=== PATIENT | male | born 1990 | race African-American/Black ===

== ENCOUNTER 2016-08-15 11:49 | Emergency (ER) | payer OTHER ==
[~2016-08-15] VITALS: Ht 185.4 cm; Wt 95.3 kg
--- NOTE | 2016-08-15 12:09 | ED ANKLE/FOOT INJURY COMPLAINT ---
History of Present Illness General Chief Complaint: Foot or Ankle Injury Stated Complaint: R FOOT INJURY Source: patient Exam Limitations: no limitations Vital Signs & Intake/Output Vital Signs & Intake/Output Vital Signs Date Time Temp Pulse Resp B/P Pulse O2 O2 Flow FiO2 Ox Delivery Rate 08/15 1201 97.3 67 16 123/82 100 Room Air Allergies Coded Allergies: No Known Allergies (08/15/16) Triage Note: 26 Y/O MALE C/O PAIN TO OUTER ASPECT R FOOT X FEW DAYS; STATES HE HAS HAD PAIN SINCE PLAYING BASKETBALL APPROX 1 WEEK AGO. HAS BEEN TAKING OTC MEDS WITH NO RELIEF OF SWELLING OR PAIN. DECLINES OFFER OF W/C Triage Nurses Notes Reviewed? yes HPI: Patient is a 26-year-old male presented complaining of right foot pain. Patient reports that approximately 2 weeks ago he noticed an area of "athlete's foot" to his right distal lateral foot, has been using a powder to the area with no improvement. One week ago patient was playing basketball and he twisted his right foot. Patient has been having pain and swelling for approximately 4-5 days. Today patient noticed some redness to his right foot. Pain is moderate, worsens with palpation and walking. Patient has been taking [id number] pain medication with no improvement. Patient denies fevers, headache injury, neck pain, numbness, decreased range of motion. (DUSTY DANIEL) Reconcile Medications Amoxicillin/Potassium Clav (Augmentin 875-125 Tablet) 875 MG-125 MG TABLET 1 TAB PO BID cellulitis Clotrimazole 1 % CREAM..G. 1 GLADIS TOP TID PRN rash/"athlete's foot" apply to affected area(s) Diclofenac Sodium 75 MG TABLET.DR 1 TAB PO BID PRN pain/inflammation Tramadol HCl 50 MG TABLET 1-2 TAB PO Q6 PRN pain (THADDEUS NARVAEZ DO) Past History Travel History Traveled to [place] past 21 day No Medical History Any Pertinent Medical History? none Neurological: NONE EENT: NONE Cardiovascular: NONE Respiratory: NONE Gastrointestinal: NONE Hepatic: NONE Renal: NONE Musculoskeletal: NONE Psychiatric: NONE Endocrine: NONE Blood Disorders: NONE Cancer(s): NONE RN BUILDING/Reproductive: NONE Surgical History Surgical History: non-contributory Psychosocial History What is your primary language Pashto Tobacco Use: Current Not Daily Family History Hx Contributory? No (DUSTY DANIEL) Review of Systems Review of Systems Constitutional: Denies: chills, fever. EENTM: Reports: no symptoms. Respiratory: Reports: no symptoms. Cardiovascular: Denies: chest pain. GI: Denies: abdominal pain. Musculoskeletal: Reports: see HPI. Skin: Reports: erythema (right foot). Neurological/Psychological: Reports: no symptoms. Hematologic/Endocrine: Reports: no symptoms. Immunologic/Allergic: Reports: no symptoms. (DUSTY DANIEL) Physical Exam Physical Exam General Appearance: well developed/nourished, alert, awake Head: atraumatic, normal appearance Eyes: Bilateral: normal appearance. Ears, Nose, Throat: hearing grossly normal Neck: normal inspection, full range of motion Cardiovascular/Respiratory: no respiratory distress Back: normal inspection, normal range of motion Leg/Knee/Thigh Left: normal range of motion, normal inspection Leg/Knee/Thigh Right: normal range of motion, normal inspection Ankle Right: normal inspection, normal range of motion, nontender Foot Right: mild erythema, swelling, tenderness dorsolateral mid and distal foot. Neuro/Vascular: normal motor function, normal sensation Tendon: normal tendon function (DUSTY DANIEL) Progress Differential Diagnosis: cellulitis, fracture, sprain, contusion, tinea pedis, osteomyelitis Plan of Care: Orders Procedure Date/time Status Durable Medical Equipment 08/15 1318 Active 08/15/2016 1:26:24 PM: Results of x-ray discussed with patient. Suspect foot sprain and an element of cellulitis, likely stemming from the area of tinea pedis that causes skin breakdown. Patient afebrile, nontoxic-appearing. Will start patient on clotrimazole, antibiotics, medication for pain control. Appears stable for discharge. (DUSTY DANIEL) Diagnostic Imaging: Viewed by Me: Radiology Read. Discussed w/RAD: Radiology Read. Radiology Impression: PATIENT: THADDEUS PALOMARES PRESENT AGE: 26 PATIENT ACCOUNT NO: [id number] : 88 LOCATION: [facility] ORDERING PHYSICIAN: THADDEUS NARVAEZ DO SERVICE DATE: 08/15/16-1202 EXAM TYPE: RAD - XRY-FOOT COMPLETE, R EXAMINATION: XR FOOT, RIGHT CLINICAL INFORMATION: Right foot pain and swelling for one week. Evaluate for fracture. COMPARISON: None TECHNIQUE: Right foot, 3 views FINDINGS: Small enthesophytes of the calcaneus. The Chopart and Lisfranc joints are intact. No acute fracture, subluxation or focal soft tissue swelling within the foot. The joint spaces are maintained. IMPRESSION: No acute fracture or malalignment within the right foot. DICTATED BY: BRODY FORTE MD DATE/TIME DICTATED:08/15/161302 COOKY MACHINE OPERATOR:BRENDA DATE/TIME TRANSCRIBED:08/15/161302 CONFIDENTIAL, DO NOT COPY WITHOUT APPROPRIATE AUTHORIZATION. <Electronically signed in Other Vendor System> SIGNED BY: BRODY FORTE MD 08/15/16 1308 (DUSTY DANIEL) Departure Departure Time of Disposition: 1318 Disposition: HOME OR SELF CARE Condition: Stable Clinical Impression Primary Impression: Foot sprain Qualifiers: Encounter type: initial encounter Laterality: right Qualified Code: S93.601A - Unspecified sprain of right foot, initial encounter Secondary Impressions: Cellulitis of right foot Tinea pedis Qualifiers: Laterality: right Qualified Code: B35.3 - Tinea pedis Referrals: MANSI CAMPOS DO PATIENT HAS NO PRIMARY CARE DR (PCP/Family) NELDA KOHLER,BRYAN Additional Instructions: Elevate your foot as much as possible. Apply heat to the area. Follow up with one of the primary doctors listed in your discharge paperwork to establish a primary doctor. Return to the ER if redness spreading, fevers, pain uncontrollable or worsening of symptoms. Departure Forms: Customer Survey General Discharge Information (DUSTY DANIEL) Departure Prescriptions: Current Visit Scripts Amoxicillin/Potassium Clav (Augmentin 875-125 Tablet) 1 TAB PO BID #14 TAB Clotrimazole 1 GLADIS TOP TID PRN rash/"athlete's foot" #45 GM apply to affected area(s) Diclofenac Sodium 1 TAB PO BID PRN pain/inflammation #15 TAB Tramadol HCl 1-2 TAB PO Q6 PRN pain #15 TAB PA/DISPENSING OPTICIAN APPRENTICE Co-Sign Statement Statement: ED Attending supervision documentation- [] I saw and evaluated the patient. I have also reviewed all the pertinent lab results and diagnostic results. I agree with the findings and the plan of care as documented in the PA's/DISPENSING OPTICIAN APPRENTICE's documentation. [X] I have reviewed the ED Record and agree with the PA's/DISPENSING OPTICIAN APPRENTICE's documentation. [] Additions or exceptions (if any) to the PAs/DISPENSING OPTICIAN APPRENTICE's note and plan are summarized below: [] (THADDEUS NARVAEZ DO)
--- NOTE | 2016-08-15 13:08 | RADIOLOGY REPORT ---
EXAMINATION: XR FOOT, RIGHT CLINICAL INFORMATION: Right foot pain and swelling for one week. Evaluate for fracture. COMPARISON: None TECHNIQUE: Right foot, 3 views FINDINGS: Small enthesophytes of the calcaneus. The Chopart and Lisfranc joints are intact. No acute fracture, subluxation or focal soft tissue swelling within the foot. The joint spaces are maintained. IMPRESSION: No acute fracture or malalignment within the right foot.
[2016-08-15] MEDS ORDERED: DICLOFENAC SODI75 M2 PO ×2 (13:20→13:32)
[2016-08-15] MEDS ORDERED: AUGMENTIN 875-1 EACH PO ×2 (13:20→13:32)
[2016-08-15] MEDS ORDERED: TRAMADOL HCL50 M1 PO ×2 (13:20→13:32)
[2016-08-15] MEDS ORDERED: CLOTRIMAZOLE15 GM TOP ×2 (13:20→13:32)
== END 2016-08-15 13:35 ==
LOC: ERH 11:49
DX: S93.601A Unspecified sprain of right foot, initial encounter (principal); L03.115 Cellulitis of right lower limb; B35.3 Tinea pedis; X50.9XXA Other and unspecified overexertion or strenuous movements or postures, initial encounter; Y93.67 Activity, basketball; Y92.9 Unspecified place or not applicable
CPT/HCPCS: 73630-RT

== ENCOUNTER 2017-08-18 23:36 | Emergency (ER) | payer SELFPAY ==
[~2017-08-18] VITALS: Ht 185.4 cm; Wt 84.5 kg
[~2017-08-18 23:36] MED LIST: AUGMENTIN 875-1 EACH PO; CLOTRIMAZOLE15 GM TOP; DICLOFENAC SODI75 M2 PO; INDOMETHACIN50 M1 PO; TRAMADOL HCL50 M1 PO
--- NOTE | 2017-08-19 00:19 | ED THROAT/DENTAL COMPLAINT ---
History of Present Illness General Chief Complaint: Sore Throat, Dental Pain Stated Complaint: "LT LOWER SIDE TOOTH" Source: patient Exam Limitations: no limitations Vital Signs & Intake/Output Vital Signs & Intake/Output Vital Signs Date Time Temp Pulse Resp B/P B/P Pulse O2 O2 Flow FiO2 Mean Ox Delivery Rate 08/19 0025 97 Room Air 08/19 0023 99.3 90 18 126/76 97 Room Air Allergies Coded Allergies: No Known Allergies (08/19/17) Reconcile Medications Amoxicillin 875 MG TABLET 1 TAB PO BID tooth pain Hydrocodone/Acetaminophen (Vicodin 5-300 MG Tablet) 5 MG-300 MG TABLET 1-2 TAB PO BID pain Triage Nurses Notes Reviewed? yes Onset: Abrupt Duration: day(s):, constant Timing: recent history No Modifying Factors: none HPI: 27-year-old male comes into the emergency room for further evaluation of left lower dental pain. Patient reports that he has a cracked tooth. He's been increasing sharp throbbing pain for the past 3 days. He previously was having similar symptoms a few months ago and finished a course of medication and his symptoms improved. He does not have a dentist. Denies any other associated symptoms. (Eliot Gottlieb) Past History Travel History Traveled to [place] past 21 day No Medical History Any Pertinent Medical History? see below for history Neurological: NONE EENT: NONE Cardiovascular: NONE Respiratory: NONE Gastrointestinal: NONE Hepatic: NONE Renal: NONE Musculoskeletal: NONE Psychiatric: NONE Endocrine: NONE Blood Disorders: NONE Cancer(s): NONE AUDITING CLERK/Reproductive: NONE Surgical History Surgical History: non-contributory Psychosocial History What is your primary language Tongan Family History Hx Contributory? No (Eliot Gottlieb) Review of Systems Review of Systems Constitutional: Reports: no symptoms. EENTM: Reports: see HPI. Respiratory: Reports: no symptoms. Cardiovascular: Reports: no symptoms. GI: Reports: no symptoms. Genitourinary: Reports: no symptoms. Musculoskeletal: Reports: no symptoms. Skin: Reports: no symptoms. Neurological/Psychological: Reports: no symptoms. Hematologic/Endocrine: Reports: no symptoms. Immunologic/Allergic: Reports: no symptoms. All Other Systems: Reviewed and Negative (Eliot Gottlieb) Physical Exam Physical Exam General Appearance: well developed/nourished, no apparent distress, alert, awake Head: atraumatic, normal appearance Eyes: Bilateral: normal appearance. Mouth/Throat: normal mouth inspection, pharynx normal, dental tenderness, cracked left lower molar Neck: normal inspection, full range of motion Cardiovascular/Respiratory: no respiratory distress Back: normal inspection Neurologic/Psych: awake, alert, oriented x 3, normal gait Skin: intact, normal color Core Measures ACS in differential dx? No Sepsis Present: No Sepsis Focused Exam Completed? No (Eliot Gottlieb) Progress Differential Diagnosis: aspirated tooth, carious tooth, epiglottitis, Ludwigs angina, meningitis, odontogenic abscess, que-tonsillar abscess, pharyngeal for. body, stomatitis/gingivitis, strep pharyngitis, tooth fracture Plan of Care: 08/19/2017 12:33:21 am Patient clinically looks well. Patient is in no apparent distress. Referred to dentist. Return if any concerns. No evidence of abscess. (Eliot Gottlieb) Departure Departure Disposition: HOME OR SELF CARE Condition: Stable Clinical Impression Primary Impression: Cracked tooth Referrals: Patient Has No Primary Care Dr (PCP/Family) Additional Instructions: Take Vicodin and amoxicillin as prescribed. Follow-up with dentist. Return if any concerns worsening symptoms. Please go over all results of today's visit with your primary care doctor. Contact your primary care doctor to let them know you were here in the emergency room. There may be nonspecific findings which may not be related to your visit today here in the emergency room but may require further evaluation and chronic monitoring by your primary care doctor. If you had a laceration today the chance of foreign body always remains. You should follow-up with your primary care doctor for recheck in 3-5 days for a wound check. If you had an x-ray done there is a chance that a fracture could have been missed on initial read and you should follow-up with your primary care doctor for repeat x-rays if symptoms persist. If your blood pressure was elevated here in the emergency room please have rechecked by [facility] primary care doctor within the next 48. If you were prescribed a narcotic here in the emergency room or any type of controlled substances you're not allowed to drive while taking this medication or operate any type of heavy machinery. Narcotics can make you feel lightheaded dizziness nausea and can cause constipation. You may need to order picker/assembler a stool softener. Thank you for choosing [facility] emergency room. Please return to the emergency room immediately if you have any other concerns worsening of symptoms. Departure Forms: Customer Survey General Discharge Information Prescriptions: Current Visit Scripts Hydrocodone/Acetaminophen (Vicodin 5-300 MG Tablet) 1-2 TAB PO BID #12 TAB Amoxicillin 1 TAB PO BID #20 TAB (Eliot Gottlieb) PA/MULE DEVELOPER Co-Sign Statement Statement: ED Attending supervision documentation- [] I saw and evaluated the patient. I have also reviewed all the pertinent lab results and diagnostic results. I agree with the findings and the plan of care as documented in the PA's/MULE DEVELOPER's documentation. [x] I have reviewed the ED Record and agree with the PA's/MULE DEVELOPER's documentation. [] Additions or exceptions (if any) to the PAs/MULE DEVELOPER's note and plan are summarized below: [] (Radha KOHLER,Esteban Kang)
[2017-08-19 00:23] VITALS: BP 126/76
[2017-08-19] MEDS ORDERED: VICODIN 5-3001 EACH PO (00:26)
[2017-08-19] MEDS ORDERED: AMOXICILLIN875 M1 PO (00:26)
== END 2017-08-19 00:29 ==
LOC: ERH 23:36
DX: S02.5XXA Fracture of tooth (traumatic), initial encounter for closed fracture (principal); X58.XXXA Exposure to other specified factors, initial encounter; Y92.9 Unspecified place or not applicable; Y93.9 Activity, unspecified